=== PATIENT | male | born 1980 | race Caucasian/White ===

== ENCOUNTER 2020-05-23 09:40 | Outpatient (CLI) | payer OTHER, SELFPAY ==
--- NOTE | 2020-05-23 06:00 | DI.RAD_ITS ---
EXAM: XR PAIN CLINIC LUMBAR SP 2V CLINICAL HISTORY: Dx: Lumbar Radiculopathy TECHNIQUE: 2D and realtime digital imaging was performed. CONTRAST MATERIAL: Refer to procedure report. COMPARISON: No exams were available for comparison FINDINGS: Fluoroscopy was provided for Dr. Black during the performance of a lumbar epidural steroid injection. Please refer to the procedure report for complete details. Fluoro time: 20.7 seconds IMPRESSION:
[2020-05-23 09:49] VITALS: BP 93/62; PULSE 85; RESP 18; TEMP 37.4; O2SAT 96
--- NOTE | 2020-05-23 10:28 | PDOC.PAIN ---
Pain Clinic Procedure Note Procedure Note Procedure Note: Lumbar Epidural Steroid Injection Procedure Note COMMENTS: He was seen in our clinic by Sana Matt on 05/16/20 and had his lumbar spine MRI on 04/06/20. I did review the note from Ms. Gutierrez and he has a L5-S1 disc protrusion. DX: Lumbosacral radiculopathy IGNACIA FUENTES has been referred to the [facility] for lumbar epidural steroid injection. The patient was greeted by the nurse who verified patients name and . Patient was then taken to the fluoroscopy suite. The patient was interviewed and the medial record reviewed. There were no medical, pharmacologic, radiographic, or other structural contraindications to attempting fluoroscopically guided lumbar epidural steroid injection. Risks and expected side effects as well as potential benefits of the procedure were reviewed and voiced concerns expressed. The patient consent form was signed and witnessed. Standard patient time-out procedure was performed. The patient was placed in the prone position on the fluoroscopy table and automated blood pressure cuff and pulse oximeter applied. The skin entry point for entering/approaching the epidural space at L5-S1 and marked. Following thorough chlorhexadine preparation of the skin and draping and 1% lidocaine infiltration of the skin entry point and subcutaneous tissues, a 18 gauge Touhy needle was placed under fluoroscopic guidance and with loss of resistance technique into the epidural space. Needle tip placement and depth were aided and confirmed by fluoroscopy. There was no paresthesia or return of blood or CSF through the needle. 1 cc's of Omnipaque 240 was injected with clear epidural spread confirmed with fluoroscopy. 80mg depomedrol was injected. There was not any unusual discomfort expressed by IGNACIA FUENTES. Patient's vital signs were stable throughout the procedure and were as recorded in nursing records. Follow up plans and appointments were discussed with patient. Post procedure instruction was given as documented in nursing records and having met discharge criteria and was discharged from the [facility]. COMMENTS: If this procedure is helpful, it can be completed up to 3 times per 12 months.
[2020-05-23] MEDS: methylPREDNISolone ACETATE 80 MG/ML VIAL IJ (10:33)
[2020-05-23] MEDS: Omnipaque 240 MG/ML 50 ML BTL IJ (10:33)
[2020-05-23 10:41] VITALS: BP 121/81; PULSE 75; RESP 18; O2SAT 100
== END 2020-05-23 10:00 ==
PROVIDERS: PCP Physician Assistant Medical; Visit Provider Preventive Medicine Occupational Medicine
DX: M54.17 Radiculopathy, lumbosacral region (principal)
CPT/HCPCS: 62323; 72100; J1040; Q9967

== ENCOUNTER 2020-07-24 14:09 | Outpatient (CLI) | payer OTHER, SELFPAY ==
--- NOTE | 2020-07-24 06:00 | DI.RAD_ITS ---
EXAM: XR PAIN CLINIC LUMBAR SP 2V CLINICAL HISTORY: Dx:Lumbar Radiculopathy TECHNIQUE: 2D and realtime digital imaging was performed. CONTRAST MATERIAL: Refer to procedure report. COMPARISON: No exams were available for comparison FINDINGS: Fluoroscopy was provided for Dr. Black during the performance of a lumbar steroid epidural injection. Please refer to the procedure report for complete details. Fluoro time: 12.3 seconds IMPRESSION:
[2020-07-24 14:16] VITALS: BP 133/66; PULSE 80; RESP 18; TEMP 37.3; O2SAT 96
--- NOTE | 2020-07-24 14:42 | PDOC.PAIN ---
Pain Clinic Procedure Note Procedure Note Procedure Note: Date of service: 07/24/2020 Lumbar Epidural Steroid Injection Procedure Note #2 COMMENTS: He did very well with his first LESI DX: Lumbosacral radiculopathy IGNACIA FUENTES has been referred to the [facility] for lumbar epidural steroid injection. The patient was greeted by the nurse who verified patients name and . Patient was then taken to the fluoroscopy suite. The patient was interviewed and the medial record reviewed. There were no medical, pharmacologic, radiographic, or other structural contraindications to attempting fluoroscopically guided lumbar epidural steroid injection. Risks and expected side effects as well as potential benefits of the procedure were reviewed and voiced concerns expressed. The patient consent form was signed and witnessed. Standard patient time-out procedure was performed. The patient was placed in the prone position on the fluoroscopy table and automated blood pressure cuff and pulse oximeter applied. The skin entry point for entering/approaching the epidural space at L5-S1 and marked. Following thorough chlorhexadine preparation of the skin and draping and 1% lidocaine infiltration of the skin entry point and subcutaneous tissues, a 18 gauge Touhy needle was placed under fluoroscopic guidance and with loss of resistance technique into the epidural space. Needle tip placement and depth were aided and confirmed by fluoroscopy. There was no paresthesia or return of blood or CSF through the needle. 1 cc's of Omnipaque 240 was injected with clear epidural spread confirmed with fluoroscopy. 80mg depomedrol was injected. There was not any unusual discomfort expressed by IGNACIA FUENTES. Patient's vital signs were stable throughout the procedure and were as recorded in nursing records. Follow up plans and appointments were discussed with patient. Post procedure instruction was given as documented in nursing records and having met discharge criteria and was discharged from the [facility]. COMMENTS: If this procedure is helpful, it can be completed up to 3 times per 12 months. Richie Black DO, MPH Pain Management
[2020-07-24] MEDS: methylPREDNISolone ACETATE 80 MG/ML VIAL IJ (14:48)
[2020-07-24] MEDS: Omnipaque 240 MG/ML 50 ML BTL IJ (14:48)
[2020-07-24 14:54] VITALS: BP 128/78; PULSE 79; RESP 17; O2SAT 97
== END 2020-07-24 14:29 ==
PROVIDERS: PCP Physician Assistant Medical; Visit Provider Preventive Medicine Occupational Medicine
DX: M54.17 Radiculopathy, lumbosacral region (principal)
CPT/HCPCS: 62323; 72100; 76000; J1040; Q9967